=== PATIENT | male | born 1980 | race Caucasian/White ===

== ENCOUNTER → 2022-02-28 | Outpatient (CLI) | payer OTHER ==
--- NOTE | 2022-02-28 16:28 | Diagnostic Imaging Report ---
Indication: Left ankle pain. Time of Exam: 3:23 PM 3 views of the left ankle were obtained. The ankle mortise is well maintained. Talar dome is smooth. No fracture or dislocation is seen. Impression: No acute bony abnormality is detected. Dictated by: Dictated on workstation # [id number]
== END ==
LOC: EDBD 15:07 → ORTHO 15:07
PROVIDERS: ATTEND Orthopaedic Surgery
DX: S99.912A Unspecified injury of left ankle, initial encounter (principal); X58.XXXA Exposure to other specified factors, initial encounter
CPT/HCPCS: 73610; 99203

== ENCOUNTER → 2022-03-13 | Outpatient (CLI) | payer OTHER ==
--- NOTE | 2022-03-13 12:25 | Diagnostic Imaging Report ---
PROCEDURE: MRI left joint lower extremity without contrast. TECHNIQUE: Multiplanar, multisequence non contrast-enhanced MRI of the left lower extremity was accomplished. INDICATION: Foot/ankle fracture a month ago. Evaluate tendons and ligaments. Ankle pain. EXAMINATION: MRI of the left lower extremity without contrast 03/13/2022 FINDINGS: The peroneal tendons appear intact. The flexor and extensor tendons are intact. The Achilles tendon intact. The plantar fascia unremarkable. There is diffuse T2 hyperintensity throughout the visualized proximal 5th metatarsal likely the known fracture site. There appears to be an incompletely healed fracture best appreciated on sagittal sequences. Mild scattered T2 hyperintensity within the mid to anterior calcaneus appears to represent a vascular remnant. There is mild T2 hyperintensity within the medial malleolus which could be due to contusion. A fracture line in the region is not appreciated. The ankle mortise and talar dome appear unremarkable. The anterior talofibular ligament is intact. The posterior talofibular ligament intact. Anterior and posterior inferior tibiofibular ligaments intact. Deltoid ligament intact. IMPRESSION: 1. Fracture at the base of the 5th metatarsal with diffuse surrounding edema. Possible bone contusion in the medial malleolus. The fracture in the region difficult to exclude on MRI but not seen. Ligaments and tendons intact. Dictated by: Dictated on workstation # [id number]
== END ==
LOC: RAD 10:15
PROVIDERS: ATTEND Orthopaedic Surgery
DX: S92.352A Displaced fracture of fifth metatarsal bone, left foot, initial encounter for closed fracture (principal); M25.372 Other instability, left ankle
CPT/HCPCS: 73721

== ENCOUNTER → 2022-03-19 | Outpatient (CLI) | payer OTHER ==
--- NOTE | 2022-03-19 12:19 | Diagnostic Imaging Report ---
INDICATION: 5th metatarsal fracture follow-up. Time of Exam: 11:44 AM No prior studies are available. There is a fracture at the base of 5th metatarsal. Fracture line is clearly visible. No significant callus formation is seen. Remaining metatarsals and phalanges are intact. Midfoot and hindfoot are unremarkable. IMPRESSION: 5th metatarsal fracture. Alignment is anatomic. Fracture line remains clearly visible. Dictated by: Dictated on workstation # [id number]
== END ==
LOC: ORTHO 11:35
PROVIDERS: ATTEND Orthopaedic Surgery
DX: S92.355D Nondisplaced fracture of fifth metatarsal bone, left foot, subsequent encounter for fracture with routine healing (principal); X58.XXXD Exposure to other specified factors, subsequent encounter
CPT/HCPCS: 73630; 99213